=== PATIENT | male | born 1980 | race Two or more races ===

== ENCOUNTER 2018-09-06 07:11 | Outpatient (CLI) | payer OTHER | END 2018-09-06 07:19 | disposition home or self-care (01) | LOC: RAD 07:11 | DX: I11.9 Hypertensive heart disease without heart failure (principal); M54.5 Low back pain ==

== ENCOUNTER → 2018-11-28 07:18 | Outpatient (CLI) | payer OTHER | END | disposition home or self-care (01) | LOC: RAD 07:18 | DX: G89.29 Other chronic pain (principal); M54.5 Low back pain; M12.9 Arthropathy, unspecified; M19.90 Unspecified osteoarthritis, unspecified site ==

== ENCOUNTER 2021-09-23 08:14 | Outpatient (CLI) | payer OTHER | END 2021-09-23 08:24 | disposition home or self-care (01) | LOC: NUCLEAR 08:14 | PROVIDERS: ATTEND Internal Medicine Geriatric Medicine | DX: I73.9 Peripheral vascular disease, unspecified (principal); Z86.718 Personal history of other venous thrombosis and embolism ==

== ENCOUNTER → 2022-06-24 | Emergency (ER) | payer OTHER ==
[~2022-06-24] VITALS: Ht 172.7 cm; Wt 85.3 kg
[~2022-06-24] MED LIST: TOPROL XL25 M1 PO
== END | disposition home or self-care (01) ==
LOC: ER 07:53
DX: R42 Dizziness and giddiness (principal)